=== PATIENT | female | born 1995 | race Caucasian/White ===

== ENCOUNTER 2018-08-20 23:05 | Emergency (ER) | payer MEDICAID ==
--- NOTE | 2018-08-30 09:57 | ER ---
DATE SEEN: 08/20/2018 ADDENDUM: ASSESSMENT: 1. Round ligament pain. 2. No evidence for appendicitis, bowel obstruction, hernia, renal stone, placenta previa or abruptio, or hematoma. The patient's abdominal wall pain is secondary to strain of the round ligament. Round ligament extends from suspensory ligament to uterus. It travels close to the inguinal ligaments and then attaches to the anterior pelvis near the labia majora. The patient's pain probably is magnified when she turns in bed and is very active or carries things. PLAN: The plan is to progressively increase her activity, perform exercises, and start off by gradual progressive increase in activity, as opposed to staying on her legs and performing the usual household and also 23-year-old chores that she has performed before she got . She notes that she is going to have increased pain with walking and 50% less pain with sitting, so she has to moderate her activity to accommodate resolution of this pain or decrease the pain. Also, I discussed with her the recent studies published about the ADHD that occurs in mothers who have taken Tylenol. Approximately 200,000 mothers in [place] were noted to have been studied, and ADHD was associated with intake of Tylenol, so we chose not to use Tylenol in the face of these studies. /[id number]/[id number]
== END 2018-08-21 02:10 | disposition home or self-care (01) ==
LOC: FB.ED 23:05
DX: O99.89 Other specified diseases and conditions complicating pregnancy, childbirth and the puerperium (principal); R10.2 Pelvic and perineal pain; Z3A.28 28 weeks gestation of pregnancy
CPT/HCPCS: 36415; 80053; 85025; 85379; 99284